=== PATIENT | male | born 1960 | race Caucasian/White ===

== ENCOUNTER 2020-09-22 11:12 | Outpatient (CLI) | payer OTHER, SELFPAY ==
--- NOTE | 2020-10-04 19:09 | WPDHOMESLEEP ---
Sleep Study - Home Unattended Date of Study: 09/22/20 Ordering Provider: Kendall Gandhi DO Interpreting Provider: Veronika Trejo MD Home Sleep Study Type: Watch PAT Height: 1.88 m Weight: 114.305 kg Body Mass Index: 32.3 Neck Circumference (inches): 18.25 [place]: 3 Reason for Sleep Study Restless sleep, wakes up tired Sleep History Ilia Arguelles is a 60 year old man with snoring that is always loud enough that others complain about it. He occasionally awakens at night with heartburn, belching or coughing. He rarely awakens from sleep feeling short of breath. He occasionally has trouble sleeping with a cold. He does not wake up gasping for breath during the night and does not have breathing problems at night reported to him by others. He frequently sweats excessively at night. He does not notice his heart pounding or beating irregularly at night. He occasionally falls asleep during the day, never involuntarily and never while driving. He does not have loss of muscle tone with strong emotion. He does not have daytime difficulties due to excessive sleepiness. He does not feel paralyzed on waking or falling asleep and does not have vivid dreamlike scenes upon awakening or falling asleep. He does not feel afraid to go to sleep. He does not have nightmares. He occasionally remembers his dreams. He rarely has racing thoughts. He rarely feels sad or depressed. He frequently has anxiety. He occasionally has muscular tension. He does not notice parts of his body jerking. He occasionally kicks at night. He does not have crawling or aching feelings in his legs nor does he have any kind of leg pain at night. He does not have morning jaw pain. He does not grind his teeth during sleep. He is not bothered by pain during the day and is not awakened by pain during the night. He occasionally wakes up feeling stiff in the morning. He rarely wakes up with sore or achy muscles. He never wakes up with pain in the neck and spine. He has fatigue, feelings of panic and memory problems. On occasion he wakes up feeling refreshed. Normal bedtime is 9:00 p.m. falling asleep within 30 minutes, typically waking 2-3 times to urinate. He stays awake a few minutes before returning to sleep. He wakes the morning at 6:00 a.m.. On the weekends, he stays awake until 11:00 p.m. or 12 midnight, waking at 7:00 a.m.. He estimates getting 7-8 hours of sleep most nights. He does not generally take naps. A short nap is not refreshing. He feels better in the afternoon compared to the morning. Habits: He quit tobacco 30 years ago. Caffeine 1 cup of coffee a day. No alcohol. He indicates he sometimes uses recreational drugs. [facility] Past Medical History Medical History (Updated 10/04/20 @ 19:21 by Veronika Trejo MD) Essential hypertension FH: HTN (hypertension) Hyperlipidemia FREDA (obstructive sleep apnea) (~08/2020) Family History Family History (Updated 06/27/20 @ 13:33 by Bell Ulrich) Father Lung cancer Hypertension Mother Hypertension Social History Social History (Updated 06/27/20 @ 13:25 by Bell Ulrich) Smoking status: Former smoker Alcohol intake: current Gender identity (if verbalized by the patient): Male Medications Home Medications Medication Instructions Recorded Confirmed Type sildenafil 50 mg tablet 50 mg PO DAILY PRN 06/27/20 07/25/20 History aspirin 81 mg tablet,delayed 81 mg PO DAILY 06/28/20 07/25/20 History release losartan 25 mg tablet 25 mg PO DAILY #90 tablet 06/28/20 07/25/20 Rx atorvastatin 10 mg tablet 10 mg PO DAILY #90 tablet 08/23/20 Rx Sleep Procedure The sleep study was completed using DigilabT a technically adequate device with seven channels: peripheral arterial tone, actigraphy, body position, snore, respiratory movement, pulse oximetry, sleep staging, and heart rate. Prior to using the device, the patient received verbal and written instructions for its application and
[2020-10-04 19:31] VITALS: BMI 32.3
== END 2020-09-22 11:13 | disposition home or self-care (01) ==
LOC: ANHCSM 11:13
PROVIDERS: PCP Internal Medicine; Visit Provider Internal Medicine
DX: G47.10 Hypersomnia, unspecified (principal); G47.33 Obstructive sleep apnea (adult) (pediatric)
CPT/HCPCS: 95800

== ENCOUNTER 2025-03-18 12:45 | Outpatient (CLI) | payer OTHER, SELFPAY | END 2025-03-18 12:46 | disposition home or self-care (01) | LOC: ANHAUDIO 12:46 | PROVIDERS: PCP Nurse Practitioner; Visit Provider Nurse Practitioner | DX: H90.3 Sensorineural hearing loss, bilateral (principal); Z00.00 Encounter for general adult medical examination without abnormal findings; H93.11 Tinnitus, right ear; E78.2 Mixed hyperlipidemia; I10 Essential (primary) hypertension; Z12.5 Encounter for screening for malignant neoplasm of prostate | CPT/HCPCS: 92557; 92567 ==